=== PATIENT | male | born 1945 | race Caucasian/White ===

== ENCOUNTER → 2019-01-11 | Outpatient (CLI) | payer MEDICARE, OTHER ==
[~2019-01-11] MED LIST: ESOM20CA32 PO; IBUP200T48 PO; MULT-974 PO; ROSU20TA14 PO
== END ==
LOC: CARD 10:04
PROVIDERS: ATTEND Physician Assistant
DX: I35.1 Nonrheumatic aortic (valve) insufficiency (principal); I51.7 Cardiomegaly; I25.10 Atherosclerotic heart disease of native coronary artery without angina pectoris; I10 Essential (primary) hypertension; E78.5 Hyperlipidemia, unspecified
CPT/HCPCS: 93306

== ENCOUNTER → 2019-01-17 | Outpatient (CLI) | payer MEDICARE, OTHER ==
[~2019-01-17] VITALS: Ht 172 cm; Wt 83.0 kg
[~2019-01-17] MED LIST changes: +CATHETER FLUSH 10 ML SYR IV PRN
[2019-01-17 12:55] VITALS: BP 119/88
[2019-01-17 13:06] VITALS: BP 167/89
--- NOTE | 2019-01-17 15:46 | STRESS TEST ---
DATE OF SERVICE: 01/17/2019 EXERCISE MYOVIEW STRESS TEST REPORT REFERRING PHYSICIAN: TIAN Quinteros Baseline heart rate is 58. Baseline blood pressure 137/89. Baseline EKG is sinus rhythm with no ischemic changes. In summary, the patient was injected with 10.34 mCi of technetium-99 Myoview and the resting images were obtained. Then, the patient started exercising with a baseline heart rate, blood pressure and EKG mentioned above. At minute 7, the patient achieved maximum heart rate of 130, test was terminated. EKG was showing minimal nondiagnostic changes. The patient received 32.8 mCi of technetium-99 Myoview. Blood pressure at peak was 182/81. During recovery, heart rate and blood pressure returned to baseline. EKG returned to baseline. The resting and stress images were reviewed and compared in the short axis, horizontal long axis, and vertical long axis views. Review of the images showed diaphragmatic attenuation with good radiotracer uptake, no significant ischemia or infarction. SSS is 4, SDS 1, TID value 0.87. On the gated images, the left ventricle appeared to be normal in size with normal contractility. Calculated ejection fraction 78%. IN CONCLUSION: 1. Fair exercise tolerance, a total of 7 minutes on standard [place] protocol, total of 8.5 METS achieving 93% of maximum expected heart rate. 2. Hypertensive response to exercise with peak blood pressure 182/81 returned to baseline during recovery. 3. Minimal nondiagnostic EKG changes with exercise returned to baseline during recovery. 4. Diaphragmatic attenuation with no significant ischemia or infarction on SPECT images. 5. Normal left ventricular size with normal contractility. Calculated ejection fraction 78%. Job ID: [id number] DocumentID: [id number] Dictated Date: 01/17/2019 14:48:55 [employer] Date: 01/17/2019 15:44:55 Dictated By: ANA FLETCHER MD
== END ==
LOC: CARD 11:06
PROVIDERS: ATTEND Physician Assistant
DX: I25.10 Atherosclerotic heart disease of native coronary artery without angina pectoris (principal); I10 Essential (primary) hypertension; E78.5 Hyperlipidemia, unspecified
CPT/HCPCS: 78452; 93017